=== PATIENT | male | born 1990 | race Caucasian/White ===

== ENCOUNTER → 2018-04-08 | Outpatient (CLI) | payer OTHER ==
--- NOTE | 2018-04-08 15:49 | XR ---
Left shoulder HISTORY: Trauma and pain 3 views of the left shoulder Bone mineralization, joint spaces and alignment are maintained. Left lung apex as visualized is vernon l. IMPRESSION: No fracture or dislocation.
--- NOTE | 2018-04-08 15:50 | XR ---
EXAMINATION TYPE: XR AC joint BILAT DATE OF EXAM: 04/08/2018 COMPARISON: NONE HISTORY: Left shoulder pain after fall. TECHNIQUE: 2 views of the left acromioclavicular joint were obtained with and without weights. . FINDINGS: No abnormal widening of the acromio clavicular joint is seen. No acute fracture or dislocat ion is appreciated of the acromio clavicular joints are clavicle. Sternoclavicular joints appear unre markable as do the visualized ribs IMPRESSION: No radiographic evidence of acromioclavicular ligament tear.
== END | disposition home or self-care (01) ==
LOC: RADXRMAIN 15:15
PROVIDERS: ATTEND Emergency Medicine
DX: S43.402A Unspecified sprain of left shoulder joint, initial encounter (principal)
CPT/HCPCS: 73050

== ENCOUNTER 2019-01-27 22:12 | Emergency (ER) | payer OTHER ==
[2019-01-27 22:19] VITALS: RESP 18; TEMP 97.8
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
[2019-01-27 23:53] VITALS: BP 136/70; PULSE 78
[2019-01-28 12:30] LABS: Hepatitis C IgG Antibody Non-Reactive (Non-Reactive)
[2019-01-28 12:47] LABS: HIV 1 AB Non-Reactive (Non-Reactive); HIV AB P24 Non-Reactive (Non-Reactive); HIV P24 AG Non-Reactive (Non-Reactive)
== END 2019-01-27 23:53 | disposition home or self-care (01) ==
LOC: EC 22:12
DX: S62.337A Displaced fracture of neck of fifth metacarpal bone, left hand, initial encounter for closed fracture (principal); S00.511A Abrasion of lip, initial encounter; S81.812A Laceration without foreign body, left lower leg, initial encounter; Z77.21 Contact with and (suspected) exposure to potentially hazardous body fluids; Y04.0XXA Assault by unarmed brawl or fight, initial encounter; Y92.69 Other specified industrial and construction area as the place of occurrence of the external cause; Y99.0 Civilian activity done for income or pay
CPT/HCPCS: 29125; 36415; 86706; 86803; 87390; 99283

== ENCOUNTER 2020-11-26 12:14 | Emergency (ER) | payer BC, OTHER ==
[2020-11-26 12:18] VITALS: BP 154/81; PULSE 68; RESP 18; TEMP 98
[2020-11-26] MEDS ORDERED: IBUPROFEN 800 MG TAB PO STA (12:25)
--- NOTE | 2020-11-26 12:42 | XR ---
EXAMINATION TYPE: XR knee complete RT DATE OF EXAM: 11/26/2020 CLINICAL HISTORY: Pain and stiffness. Limited range of motion. TECHNIQUE: Three views of the right knee are obtained. COMPARISON: None. FINDINGS: There is no acute fracture/dislocation evident in right knee. The tri-compartment joint s paces appear within normal limits. No significant spurring is seen. The overlying soft tissue appear s unremarkable. IMPRESSION: As above.
--- NOTE | 2020-11-26 12:49 | ED ---
Lower Extremity Injury HPI - General Chief Complaint: Extremity Injury, Lower Stated Complaint: R knee pain Time Seen by Provider: 11/26/20 12:20 Source: patient Mode of arrival: wheelchair Limitations: no limitations - History of Present Illness Initial Comments: 30-year-old male presents to the emergency department with a chief complaint of right knee pain. Patient reports this occurred about 2 hours prior to arrival when he crossed his leg and felt his right knee "lock up". States he is not able to fully extend the knee nor fully flex the knee. He denies any paresthesias. States the pain is exacerbated with full extension or flexion. Denies taking medication to alleviate the symptoms. - Related Data Home Medications Medication Instructions Recorded Confirmed Multivitamins, Thera [Multivitamin 1 tab PO DAILY 11/26/20 11/26/20 (formulary)] Allergies Allergy/AdvReac Type Severity Reaction Status Date / Time No Known Allergies Allergy Verified 11/26/20 12:53 Review of Systems ROS Statement: Those systems with pertinent positive or pertinent negative responses have been documented in the HPI. ROS Other: All systems not noted in ROS Statement are negative. Past Medical History Past Medical History: No Reported History History of Any Multi-Drug Resistant Organisms: None Reported Past Surgical History: Orthopedic Surgery Additional Past Surgical History / Comment(s): nose Past Psychological History: No Psychological Hx Reported Smoking Status: Never smoker Past Alcohol Use History: Occasional Past Drug Use History: None Reported General Exam Limitations: no limitations General appearance: alert, in no apparent distress Head exam: Present: atraumatic, normocephalic, normal inspection Eye exam: Present: normal appearance, PERRL, EOMI Pupils: Present: normal accommodation ENT exam: Present: normal exam, normal oropharynx, mucous membranes moist Neck exam: Present: normal inspection, full ROM. Absent: tenderness Respiratory exam: Present: normal lung sounds bilaterally. Absent: respiratory distress Cardiovascular Exam: Present: regular rate, normal rhythm, normal heart sounds. Absent: systolic murmur Extremities exam: Present: normal inspection, tenderness (Infrapatellar tenderness), normal capillary refill, other (Palpable DP and PT bilaterally. Sensation intact in the right lower extremity.). Absent: full ROM (Limited range of motion with full extension or flexion), pedal edema, joint swelling, calf tenderness Back exam: Present: normal inspection, full ROM. Absent: tenderness Neurological exam: Present: alert, oriented X3 Psychiatric exam: Present: normal affect, normal mood Skin exam: Present: warm, dry, intact, normal color Course Vital Signs 11/26/20 12:16 Temperature 98.0 F Pulse Rate 68 Respiratory 18 Rate Blood Pressure 154/81 O2 Sat by Pulse 99 Oximetry Medical Decision Making - Medical Decision Making 30-year-old male presents to the emergency department with a chief complaint of right knee pain. Patient was given ibuprofen. On Physical examination, limited range of motion with full flexion and extension. X-rays are unremarkable. Knee immobilizer will be applied. Patient was advised to follow-up with an [facility] senior specialist. Return parameters were thoroughly discussed with patient is understanding and agreeable. Case discussed with physician. Disposition Clinical Impression: Right knee pain Disposition: HOME SELF-CARE Condition: Stable Instructions (If sedation given, give patient instructions): Knee Pain (ED) Additional Instructions: Follow-up with pres[facility] senior specialist. Return to emergency department if symptoms worsen. Is patient prescribed a controlled substance at d/c from ED?: No Referrals: Ayo Moreno DO [Primary Care Provider] - 1-2 days Jak Zayas DO [Doctor of Osteopathic Medicine] - 1-2 days Time of Disposition: 13:06
[2020-11-26] MEDS ORDERED: ACET/COD 300 MG/30 MG STARTER PACK 6 TAB BTL PO STA (13:35)
== END 2020-11-26 13:57 | disposition home or self-care (01) ==
LOC: EC 12:14
DX: M25.561 Pain in right knee (principal); X50.9XXA Other and unspecified overexertion or strenuous movements or postures, initial encounter; Y93.89 Activity, other specified
CPT/HCPCS: 99283; 73562; L1830

== ENCOUNTER 2021-07-04 22:16 | Emergency (ER) | payer BC ==
[2021-07-04 22:43] VITALS: TEMP 98.1
--- NOTE | 2021-07-04 23:03 | ED ---
Chest Pain HPI - General Chief Complaint: Chest Pain Stated Complaint: Chest pain,high BP Time Seen by Provider: 07/04/21 22:48 Source: patient, RN notes reviewed, old records reviewed Mode of arrival: ambulatory Limitations: no limitations - History of Present Illness Initial Comments: This is a 31-year-old male to the emergency department for evaluation today. Patient presents today for evaluation in regards to chest pain with elevated blood pressure not feeling well. No recent travel history or sick contacts. Patient has no history of heart disease no history of prior chest pain. No traumas no fevers no cough no congestion no other complaints. MD Complaint: chest pain -: hour(s) Onset: during rest, during exertion Pain Location: substernal Pain Radiation: none Severity: mild Severity scale (1-10): 2 Quality: tightness Consistency: intermittent Improves With: nothing Worsens With: nothing Anginal Symptoms: dyspnea Other Symptoms: palpitations Treatments Prior to Arrival: none - Related Data Home Medications Medication Instructions Recorded Confirmed Multivitamins, Thera [Multivitamin 1 tab PO DAILY 11/26/20 07/04/21 (formulary)] Allergies Allergy/AdvReac Type Severity Reaction Status Date / Time No Known Allergies Allergy Verified 07/04/21 23:28 Review of Systems ROS Statement: Those systems with pertinent positive or pertinent negative responses have been documented in the HPI. ROS Other: All systems not noted in ROS Statement are negative. EKG Findings - EKG Comments: EKG Findings:: EKG is sinus bradycardia 54 WI 150 QRS 80 QTC 392 Past Medical History Past Medical History: No Reported History History of Any Multi-Drug Resistant Organisms: None Reported Past Surgical History: Orthopedic Surgery Additional Past Surgical History / Comment(s): nose, rt knee Past Psychological History: No Psychological Hx Reported Smoking Status: Never smoker Past Alcohol Use History: Occasional Past Drug Use History: None Reported General Exam Limitations: no limitations General appearance: alert, in no apparent distress Head exam: Present: atraumatic, normocephalic, normal inspection Eye exam: Present: normal appearance, PERRL, EOMI. Absent: scleral icterus, conjunctival injection, periorbital swelling ENT exam: Present: normal exam, mucous membranes moist Neck exam: Present: normal inspection. Absent: tenderness, meningismus, lymphadenopathy Respiratory exam: Present: normal lung sounds bilaterally. Absent: respiratory distress, wheezes, rales, rhonchi, stridor Cardiovascular Exam: Present: regular rate, normal rhythm, normal heart sounds. Absent: systolic murmur, diastolic murmur, rubs, gallop, clicks GI/Abdominal exam: Present: soft, normal bowel sounds. Absent: distended, tenderness, guarding, rebound, rigid Extremities exam: Present: normal inspection, full ROM, normal capillary refill. Absent: tenderness, pedal edema, joint swelling, calf tenderness Back exam: Present: normal inspection Neurological exam: Present: alert, oriented X3, CN II-XII intact Psychiatric exam: Present: normal affect, normal mood Skin exam: Present: warm, dry, intact, normal color. Absent: rash Course Vital Signs 07/04/21 07/04/21 07/05/21 22:41 23:07 00:05 Temperature 98.1 F Pulse Rate 77 65 60 Respiratory 20 18 18 Rate Blood Pressure 150/82 147/81 123/73 O2 Sat by Pulse 98 97 96 Oximetry - Reevaluation(s) Reevaluation #1: Medical record is reviewed Patient symptoms are improved here in the ER Patient informed of results and questions answered Chest Pain MDM - MDM 31 male to the emergency department for evaluation patient presents today for evaluation of chest pain and elevated blood pressure. Blood pressure normalized here in the ER chest x-rays negative EKG is normal patient can be discharged home Disposition Clinical Impression: Chest pain, Atypical chest pain Disposition: HOME SELF-CARE Condition: Good Instructions (If sedation given, give patient instructions): Chest Pain (ED) Is patient prescribed a controlled substance at d/c from ED?: No Referrals: Ayo Moreno DO [Primary Care Provider] - 1-2 days
[2021-07-04 23:08] VITALS: RESP 18
--- NOTE | 2021-07-04 23:37 | XR ---
EXAMINATION TYPE: XR chest 1V portable DATE OF EXAM: 07/04/2021 COMPARISON: NONE HISTORY: Chest pain TECHNIQUE: Single view FINDINGS: Heart and mediastinum are normal. Lungs are clear. Diaphragm is normal. Bony thorax is inta ct. IMPRESSION: Normal chest.
[2021-07-05 00:06] VITALS: BP 123/73; PULSE 60
== END 2021-07-05 01:01 | disposition home or self-care (01) ==
LOC: EC 22:16
DX: R07.89 Other chest pain (principal); R03.0 Elevated blood-pressure reading, without diagnosis of hypertension; Z20.822 Contact with and (suspected) exposure to COVID-19
CPT/HCPCS: 71045; 87635; 93005; 99285

== ENCOUNTER 2022-01-07 23:29 | Emergency (ER) | payer OTHER, BC ==
[2022-01-07 23:36] VITALS: BP 141/82; PULSE 97; RESP 18; TEMP 98.7
[2022-01-07] MEDS ORDERED: AMOXIC-POT CLAV 875-125MG 1 EACH TAB PO STA (23:47)
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
--- NOTE | 2022-01-08 00:25 | XR ---
EXAMINATION TYPE: XR hand complete RT DATE OF EXAM: 01/07/2022 COMPARISON: NONE HISTORY: Pain TECHNIQUE: 3 views FINDINGS: Carpal bones are intact. Metacarpals are intact. I see no fracture nor dislocation there ar e no erosions. Joint spaces are normal. IMPRESSION: Negative right hand exam. No fracture.
== END 2022-01-08 00:33 | disposition home or self-care (01) ==
LOC: EC 23:29
DX: S60.221A Contusion of right hand, initial encounter (principal); W26.8XXA Contact with other sharp object(s), not elsewhere classified, initial encounter
CPT/HCPCS: 99283

== ENCOUNTER 2024-05-15 16:59 | Emergency (ER) | payer OTHER, BC ==
[2024-05-15 17:07] VITALS: BP 165/100; PULSE 86; RESP 20
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
[2024-05-15 23:02] LABS: Hepatitis B Surface Antigen Nonreactive (Nonreactive); Hepatitis C IgG Antibody Nonreactive (Nonreactive)
[2024-05-15 23:05] LABS: Hepatitis B Surface AB- Quant 3.5 mIU/mL
[2024-05-16 16:40] LABS: HIV 2 AB Non-Reactive (Non-Reactive); HIV AB P24 Non-Reactive (Non-Reactive); HIV P24 AG Non-Reactive (Non-Reactive)
== END 2024-05-15 18:07 | disposition home or self-care (01) ==
LOC: EC 16:59
DX: Z77.21 Contact with and (suspected) exposure to potentially hazardous body fluids (principal)
CPT/HCPCS: 36415; 86706; 86803; 87340; 87390; 99284